=== PATIENT | female | born 1985 | race Caucasian/White ===

== ENCOUNTER 2019-04-30 10:12 | Emergency (ER) | payer SELFPAY ==
--- OUTSIDE RECORDS SUMMARY | 2019-04-30 10:13 | XMS REPORT | Continuity of Care Document ---
:1985 Author Organization [facility] Address [address] [place] [address] Phone Unavailable Care Team Providers Name Role Phone PHYSICIAN, NO Primary Care Physician Unavailable Insurance Providers Guarantor Vicky Ortiz Address [address] [place] [address] Email NONE Payer Self Pay Insurance Subscriber's Name Vicky Ortiz Relationship Self / Same As Patient Group Number NA Group Name NA Advance Directives Directive Response Recorded Date/Time Advance Directives No 10/02/15 8:28am Advance Directive on File No 07/20/18 12:57pm Directive to Physicians/Living Will No 10/02/15 8:28am Health Care Proxy No 10/02/15 8:28am Organ Donor No 10/02/15 8:28am Medical Power of Dot Net Architect No 10/02/15 8:28am Patient/Family Given Education Material R/T Y - 07/20/18....SBM 07/20/18 12 :57pm Directives? Chief Complaint and Reason for Visit Chief Complaint General Complaint Reason for Visit Palpitations Anxiety Problems Medical Problem Onset Date Status Suprapubic pain Unknown Acute UTI (urinary tract infection) Unknown Acute Vaginitis Unknown Acute Past Problems Medical Problem Onset Date Status Anxiety Unknown Acute Palpitations Unknown Acute Medications Current Home Medications Medication Dose Units Route Directions Days Qty Instructions Start Date Emtricitabine/Ten 1 Tab ORAL Daily 30 Tablet ofovir * (Truvada 200/300 Mg *) Tab Lopinavir/Ritonav 2 Tab ORAL Twice A Day ir * (Kaletra 100/25 Mg *) 1 Tab Tab Social History Social History Problem Response Recorded Date/Time Onset Date Status Hx Physical Abuse No 07/20/2018 12:57pm Not Applicable Not Applicable Smoking Status Start Date Stop Date Current every day smoker Hospital Discharge Instructions No hospital discharge instruction information available. Plan of Care Discharge Date 07/20/18 3:27pm Instructions/Education Provided Palpitations Living With Anxiety Forms Provided Prescription Opioid Use Portal Welcome Letter Prescriptions See Medication Section Referrals NO PHYSICIAN Additional Instructions/Education FOLLOW UP WITH A PRIMARY CARE PROVIDER IN 2- 3 DAYS RETURN TO THE ER IF YOUR SYMPTOMS WORSEN Functional Status No functional status information available. Allergies, Adverse Reactions, Alerts Allergen Type Severity Reaction Status Last Updated No Known Allergies Allergy Severe Active 03/19/04 Immunizations No immunization information available. Vital Signs Acute Vital Signs Vital Response Date/Time Blood Pressure 103/66 mm Hg 07/20/2018 3:31pm Pulse Pulse Rate (adult) 77 beats per minute (60 - 100) 07/20/2018 3:31pm Respiratory Rate 20 breaths per minute (10 - 24) 07/20/2018 3:31pm Temperature Source Oral 07/20/2018 3:31pm Height 5 ft 6 in 07/20/2018 12:57pm Weight 120 lb 07/20/2018 12:57pm Body Mass Index 19.4 kg/m^2 07/20/2018 12:57pm Results Laboratory Results Test Name Result Units Flags Reference Collection Result Comments Date/Time Date/Time White Blood Count 6.2 K/ul 4.0-11.5 07/20/2018 07/20/2018 2:08pm 2:15pm Red Blood Count 4.36 M/ul 3.80-5.20 07/20/2018 07/20/2018 2:08pm 2:15pm Hemoglobin 13.3 g/dl 10.5-15.7 07/20/2018 07/20/2018 2:08pm 2:15pm Hematocrit 40.6 % 34.0-50.0 07/20/2018 07/20/2018 2:08pm 2:15pm Mean Corpuscular 93.1 fl 78-98 07/20/2018 07/20/2018 Volume 2:08pm 2:15pm Mean Corpuscular 30.5 pg 26.2-33.4 07/20/2018 07/20/2018 Hemoglobin 2:08pm 2:15pm Mean Corpuscular 32.7 g/dl 31.5-36.2 07/20/2018 07/20/2018 Hemoglobin Concent 2:08pm 2:15pm Red Cell 11.3 % L 11.5-15.5 07/20/2018 07/20/2018 Distribution Width 2:08pm 2:15pm Platelet Count 192 K/ul 137-338 07/20/2018 07/20/2018 2:08pm 2:15pm Mean Platelet 7.6 fl L 8.4-11.8 07/20/2018 07/20/2018 Volume 2:08pm 2:15pm Neutrophils (%) 78.7 % 44.4-80.1 07/20/2018 07/20/2018 (Auto) 2:08pm 2:15pm Lymphocytes (%) 13.1 % 10.0-50.0 07/20/2018 07/20/2018 (Auto) 2:08pm 2:15pm Monocytes (%) 6.4 % 3.6-12.04 07/20/2018 07/20/2018 (Auto) 2:08pm 2:15pm Eosinophils (%) 0.3 % 0.0-5.41 07/20/2018 07/20/2018 (Auto) 2:08pm 2:15pm Basophils (%) 1.4 % H 0.0-0.79 07/20/2018 07/20/2018 (Auto) 2:08pm 2:15pm Prothrombin Time 10.9 SECONDS 10.3-12.3 07/20/2018 07/20/2018 2:08pm 2:33pm THERAPEUTIC LEVEL: 1.5 to 1.9 times normal range of PT Prothromb Time 0.99 07/20/2018 07/20/2018 International 2:08pm 2:33pm Recommended therapeutic range for patients receiving Ratio warfarin (coumadin) therapy: INR is 2.0 to 3.0 Recommended range for patients with mechanical prosthetic heart valves: INR is 2.5 to 3.5 Activated Partial 28.1 SECONDS 22.5-37.0 07/20/2018 07/20/2018 Thromboplast Time 2:08pm 2:33pm Random Glucose 98 mg/dL 74-106 07/20/2018 07/20/2018 2:08pm 2:34pm Blood Urea 10 mg/dL 6-20 07/20/2018 07/20/2018 Nitrogen 2:08pm 2:34pm Serum Osmolality 273 L 280-300 07/20/2018 07/20/2018 2:08pm 2:34pm Creatinine 0.6 mg/dL 0.50-0.90 07/20/2018 07/20/2018 2:08pm 2:34pm Glomerular > 60.00 07/20/2018 07/20/2018 GFR RESULTS ARE REPORTED IN mL/min/1.73m2. Filtration Rate 2:08pm 2:34pm Calc Normal GFR: >60mL/min Moderately decreased GFR: 30-59 mL/min Severely decreased GFR: 15-29 mL/min Kidney Failure (or Dialysis): <15 mL/min The calculated eGFR is not valid for patients younger than 18 years or older than 75 years. BUN/Creatinine 16.7 -07/20/2018 07/20/2018 Ratio 2:08pm 2:34pm Sodium Level 137 mmol/L 135-145 07/20/2018 07/20/2018 2:08pm 2:34pm Potassium Level 4.3 mmol/L 3.5-5.2 07/20/2018 07/20/2018 2:08pm 2:34pm Chloride Level 101 mmol/L 98-108 07/20/2018 07/20/2018 2:08pm 2:34pm Carbon Dioxide 22 mmol/L 21-32 07/20/2018 07/20/2018 Level 2:08pm 2:34pm Anion Gap 18.3 mEq/L 03-1607/20/2018 07/20/2018 2:08pm 2:34pm Calcium Level 9.2 mg/dL 8.6-10.0 07/20/2018 07/20/2018 2:08pm 2:34pm Total Protein 7.7 g/dL 6.6-8.7 07/20/2018 07/20/2018 2:08pm 2:34pm Albumin 4.8 g/dL 3.5-5.2 07/20/2018 07/20/2018 2:08pm 2:34pm Globulin 2.9 gm/dL 07/20/2018 07/20/2018 2:08pm 2:34pm Albumin/Globulin 1.7 >1.0 07/20/2018 07/20/2018 Ratio 2:08pm 2:34pm Total Bilirubin 0.8 mg/dL 0.0-1.2 07/20/2018 07/20/2018 2:08pm 2:34pm Aspartate Amino 15 U/L 15-32 07/20/2018 07/20/2018 Transf (AST/SGOT) 2:08pm 2:34pm Alanine 8 U/L 0-33 07/20/2018 07/20/2018 Aminotransferase 2:08pm 2:34pm (ALT/SGPT) Total Alkaline 58 U/L 35-105 07/20/2018 07/20/2018 Phosphatase 2:08pm 2:34pm Creatine Kinase 64 U/L 20-180 07/20/2018 07/20/2018 2:08pm 2:34pm Troponin I < 0.30 ng/mL 0.0-0.5 07/20/2018 07/20/2018 Published clinical studies have shown elevations of cTnI in 2:08pm 2:35pm patients with myocardial injury, as seen in unstable angina pectoris, cardiac contusions, and heart transplants. Elevations have also been seen in patients with rhabdomyolysis and polymyositis. Elevated troponin levels point to myocardial injury, but are not necessarily indicative of an ischemic mechanism. The term TN should be used when there is evidence of cardiac damage, as detected by marker proteins in a clinical setting consistent with myocardial ischemia. If the clinical circumstance suggests that an ischemic mechanism is unlikely, other causes of cardiac injury should be considered. For diagnostic purposes, the results should always be assessed in conjunction with the patient's medical history, clinical examination and other findings. Creatine Kinase MB < 1.0 ng/ml 0.0-3.6 07/20/2018 07/20/2018 2:08pm 2:35pm DIAGNOSTIC CITERIA: CKMB CKMB RELATIVE INDEX SUGGESTIVE OF NON-AMI < or=5 N/A ZARATE ZONE (INCONCLUSIVE) > 5 < or=4 SUGGESTIVE OF AMI >5 > 4 Procedures Procedure Status Date Provider(s) X-ray of chest, single view Completed 07/20/18 EZRA PATTERSON NP Encounters Encounter Location Arrival/Admit Date Discharge/Depart Date Attending Provider Departed Betsy [place]ne 07/20/18 12:49pm 07/20/18 3:27pm MARII VAUGHN MD Emergency Room [facility] Recent Diagnosis
[2019-04-30] MEDS ORDERED: NA CHLORIDE 0.9% 1,000 ML ONE (10:48)
[2019-04-30] MEDS ORDERED: ONDANSETRON 4 MG/2 ML VIAL ONE (10:48)
[2019-04-30 11:15] LABS: Urine Blood NEGATIVE (NEG); Urine Glucose NEGATIVE (NEG); Urine Protein TRACE (NEG)
[2019-04-30 11:17] LABS: Absolute Lymphocytes (CBC) 0.7 K/uL (0.7-4.9); Basophils % 1.2 % (0-1.3); Hematocrit 38.5 % (36.0-45.0); MPV 8.9 fL (7.6-11.3); RBC Red Blood Cell Count 4.38 M/uL (3.86-4.86)
[2019-04-30 11:34] LABS: ALT/SGPT 14 U/L (12-78); AST/SGOT 11 U/L (15-37); Albumin 4.1 g/dL (3.4-5.0); Alkaline Phosphatase 58 U/L (45-117); BUN Blood Urea Nitrogen 8 mg/dL (7-18); Bicarbonate 26 mmol/L (21-32); Bilirubin Direct < 0.1 mg/dL (0-0.2); Bilirubin Total 0.4 mg/dL (0.2-1.0); Glucose Level 93 mg/dL (74-106); Lipase 57 U/L (73-393); Potassium 3.7 mmol/L (3.5-5.1); Protein, Total 7.9 g/dL (6.4-8.2); Sodium Level 141 mmol/L (136-145)
--- NOTE | 2019-04-30 12:28 | RAD REPORT ---
EXAM DESCRIPTION: RAD - Abdomen 1 View (KUB) - 04/30/2019 12:09 pm CLINICAL HISTORY: Abdomen pain. FINDINGS: The bowel gas pattern is unremarkable. No abnormal calcification is displayed
--- NOTE | 2019-04-30 12:29 | ER ---
Nurse's Notes [facility] Name: Vicky Castañeda Age: 33 yrs Sex: Female : 1985 Arrival Date: 04/30/2019 Time: 10:12 Bed 18 Private MD: Diagnosis: Nausea and vomiting;Local infection of the skin and subcutaneous tissue, unspecified-right thigh Presentation: 04/30 10:22 Presenting complaint: Patient states: vomiting since last night, I was drinking. but I ch also have this thing on my leg and im worried that's causing ti. Transition of care: patient was not received from another setting of care. Onset of symptoms was April 29, 2019 at 23:00. Risk Assessment: Do you want to hurt yourself or someone else? Patient reports no desire to harm self or others. Initial Sepsis Screen: Does the patient meet any 2 criteria? No. Patient's initial sepsis screen is negative. Does the patient have a suspected source of infection? No. Patient's initial sepsis screen is negative. Care prior to arrival: None. 10:22 Method Of Arrival: Ambulatory 10:22 Acuity: WHIT 4 ch Triage Assessment: 10:24 General: Appears in no apparent distress. comfortable, Behavior is calm, cooperative, ch appropriate for age. Pain: Denies pain. GI: Reports nausea. 10:36 General: Appears in no apparent distress. comfortable, Behavior is cooperative, bp appropriate for age, anxious. Pain: Denies pain. EENT: No deficits noted. Neuro: No deficits noted. Cardiovascular: No deficits noted. Respiratory: No deficits noted. GI: Reports nausea. : No signs and/or symptoms were reported regarding the genitourinary system. Derm: No deficits noted. Musculoskeletal: No deficits noted. Historical: - Allergies: 10:24 No Known Allergies; ch - Home Meds: 10:24 None [Active]; ch - PMHx: 10:24 None; ch - PSHx: 10:24 R eye; c section; Tubal ligation; ch - Immunization history:: Adult Immunizations up to date, Flu vaccine is not up to date. - Coronavirus screen:: The patient has NOT traveled to [place], [place], or [place] in the past 14 days. The patient has NOT had contact with known/suspected case of Coronavirus?. - Social history:: Smoking status: Patient denies any tobacco usage or history of. Patient uses alcohol, occasionally. - Ebola Screening: : Patient negative for fever greater than or equal to 101.5 degrees Fahrenheit, and additional compatible Ebola Virus Disease symptoms Patient denies exposure to infectious person Patient denies travel to an Ebola-affected area in the 21 days before illness onset No symptoms or risks identified at this time. Screenin:37 Abuse screen: Denies threats or abuse. Denies injuries from another. Nutritional bp screening: No deficits noted. Tuberculosis screening: No symptoms or risk factors identified. Fall Risk None identified. Assessment: 10:37 General: SEE TRIAGE NOTE. GI: Abdomen is non-distended. bp 11:45 Reassessment: PT TO XRAY. PO CHALLENGE SUCCESSFUL. RESULTS PENDING. bp 12:36 Reassessment: PT D/C HOME AMBULATORY WITH FAMILY, DX WITH CUTANEOUS INFECTION. bp Vital Signs: 10:24 BP 122 / 86; Pulse 115; Resp 18; Temp 97.8(O); Pulse Ox 100% on R/A; Weight 53.52 kg; ch Height 5 ft. 6 in. (167.64 cm); Pain 0/10; 12:00 BP 105 / 69; Pulse 99; Resp 16; Pulse Ox 100% ; bp 12:36 BP 107 / 70; Pulse 99; Resp 17; Temp 98; Pulse Ox 100% ; bp 10:24 Body Mass Index 19.05 (53.52 kg, 167.64 cm) ED Course: 10:12 Patient arrived in ED. as 10:20 Chan Garay MD is Attending Physician. kdr 10:23 Bridger Thompson, HERO is Primary Nurse. bp 10:23 Triage completed. ch 10:24 Arm band placed on left wrist. Patient placed in an exam room, on a stretcher. ch 10:25 Jake Perdomo PA is PHCP. cp 10:37 Patient has correct armband on for positive identification. Bed in low position. Call bp light in reach. Side rails up X2. Adult w/ patient. 10:50 Inserted saline lock: 20 gauge in right antecubital area, using aseptic technique. bp Blood collected. 12:18 XRAY KUB Sent. bp 12:37 No provider procedures requiring assistance completed. IV discontinued, intact, bp bleeding controlled, No redness/swelling at site. Pressure dressing applied. Administered Medications: 10:50 Drug: Zofran 4 mg Route: IVP; Site: right antecubital; bp 12:08 Follow up: Response: Nausea is decreased bp 10:50 Drug: NS 0.9% 1000 ml Route: IV; Rate: 1 bolus; Site: right antecubital; bp 12:38 Follow up: IV Status: Completed infusion; IV Intake: 1000ml bp Intake: 12:38 IV: 1000ml; Total: 1000ml. bp Outcome: 12:28 Discharge ordered by MD. cp 12:37 Discharged to home ambulatory, with family. bp 12:37 Condition: stable 12:37 Discharge instructions given to patient, Instructed on discharge instructions, follow up and referral plans. medication usage, Demonstrated understanding of instructions, follow-up care, medications, wound care, Prescriptions given X 3. 12:38 Patient left the ED. bp Addendum: 05/03/2019 10:06 Addendum: Culture Results: Positive urine culture. No further action required. Bacteria i w sensitive to prescribed antibiotic. Signatures: Tomeka Tompkins RN RN Chan Garay MD MD kdr Martinez, Amelia as Alexia Pineda RN RN iw Page, Corey, LAUREN PA cp Bridger Thompson RN RN bp Corrections: (The following items were deleted from the chart) 04/30 10:25 10:22 Acuity: WHIT 3 ch
--- NOTE | 2019-04-30 12:29 | EDPHYS ---
Physician Documentation [facility] Name: Vicky Castañeda Age: 33 yrs Sex: Female : 1985 Arrival Date: 04/30/2019 Time: 10:12 Bed 18 Private MD: ED Physician Chan Garay HPI: 04/30 10:45 This 33 yrs old Female presents to ER via Ambulatory with complaints of cp Vomiting. 10:45 The patient presents to the emergency department with nausea, that is moderate, cp vomiting, that is intermittent. Onset: The symptoms/episode began/occurred this morning. Possible causes: drink alcohol last night. Associated signs and symptoms: Pertinent negatives: abdominal pain, constipation, diarrhea, fever, GI bleeding. Severity of symptoms: in the emergency department the symptoms are unchanged despite home interventions. Patient also reports area of redness to right thigh "for awhile" that has been draining. Historical: - Allergies: 10:24 No Known Allergies; ch - Home Meds: 10:24 None [Active]; ch - PMHx: 10:24 None; ch - PSHx: 10:24 R eye; c section; Tubal ligation; ch - Immunization history:: Adult Immunizations up to date, Flu vaccine is not up to date. - Coronavirus screen:: The patient has NOT traveled to [place], [place], or [place] in the past 14 days. The patient has NOT had contact with known/suspected case of Coronavirus?. - Social history:: Smoking status: Patient denies any tobacco usage or history of. Patient uses alcohol, occasionally. - Ebola Screening: : Patient negative for fever greater than or equal to 101.5 degrees Fahrenheit, and additional compatible Ebola Virus Disease symptoms Patient denies exposure to infectious person Patient denies travel to an Ebola-affected area in the 21 days before illness onset No symptoms or risks identified at this time. ROS: 11:00 Constitutional: Negative for body aches, chills, fever, poor PO intake. cp 11:00 Eyes: Negative for injury, pain, redness, and discharge. cp 11:00 ENT: Negative for drainage from ear(s), ear pain, sore throat, difficulty swallowing, difficulty handling secretions. 11:00 Cardiovascular: Negative for chest pain, palpitations. 11:00 Respiratory: Negative for cough, shortness of breath, wheezing. 11:00 Abdomen/GI: Positive for nausea and vomiting, Negative for abdominal pain, diarrhea, constipation, hematemesis, black/tarry stool, rectal bleeding. 11:00 Back: Negative for radiated pain. 11:00 : Negative for urinary symptoms. 11:00 Skin: Positive for cellulitis, of the right thigh. 11:00 Neuro: Negative for headache. 11:00 All other systems are negative. Exam: 11:05 Constitutional: The patient appears in no acute distress, alert, awake, non-toxic, well cp developed, well nourished. 11:05 Head/Face: Normocephalic, atraumatic. cp 11:05 Eyes: Periorbital structures: appear normal, Conjunctiva: normal, no exudate, no injection, Sclera: no appreciated abnormality, Lids and lashes: appear normal, bilaterally. 11:05 ENT: External ear(s): are unremarkable, Nose: is normal, Mouth: Lips: moist, Oral mucosa: pink and intact, moist, Posterior pharynx: Airway: no evidence of obstruction, patent. 11:05 Neck: ROM/movement: is normal, no nuchal rigidity. 11:05 Chest/axilla: Inspection: normal, Palpation: is normal, no crepitus, no tenderness. 11:05 Cardiovascular: Rate: tachycardic, Rhythm: regular. 11:05 Respiratory: the patient does not display signs of respiratory distress, Respirations: normal, no use of accessory muscles, no retractions, no splinting, no tachypnea, labored breathing, is not present, Breath sounds: are clear throughout, no decreased breath sounds, no stridor, no wheezing. 11:05 Abdomen/GI: Inspection: abdomen appears normal, Bowel sounds: active, all quadrants, Palpation: abdomen is soft and non-tender, in all quadrants. 11:05 Back: pain, is absent, ROM is normal. 11:05 Skin: cellulitis, that is mild, well demarcated, on the right thigh. Vital Signs: 10:24 BP 122 / 86; Pulse 115; Resp 18; Temp 97.8(O); Pulse Ox 100% on R/A; Weight 53.52 kg; ch Height 5 ft. 6 in. (167.64 cm); Pain 0/10; 12:00 BP 105 / 69; Pulse 99; Resp 16; Pulse Ox 100% ; bp 12:36 BP 107 / 70; Pulse 99; Resp 17; Temp 98; Pulse Ox 100% ; bp 10:24 Body Mass Index 19.05 (53.52 kg, 167.64 cm) ch MDM: 10:32 Patient medically screened. cp 11:00 Differential diagnosis: gastritis, cholecystitis, appendicitis, viral gastroenteritis, cp gastroenteritis. 12:27 Data reviewed: vital signs, nurses notes, lab test result(s), radiologic studies, plain cp films. 12:27 Test interpretation: by ED physician or midlevel provider: plain radiologic studies, cp KUB xray negative for obstruction. Counseling: I had a detailed discussion with the patient and/or guardian regarding: the historical points, exam findings, and any diagnostic results supporting the discharge/admit diagnosis, lab results, radiology results, to return to the emergency department if symptoms worsen or persist or if there are any questions or concerns that arise at home. Response to treatment: the patient's symptoms have markedly improved after treatment, VSS. Nausea improved and no vomiting observed by patient while in ED, and as a result, I will discharge patient. 04/30 10:38 Order name: Basic Metabolic Panel cp 04/30 10:38 Order name: CBC with Diff cp 04/30 10:38 Order name: Creatinine for Radiology cp 04/30 10:38 Order name: Hepatic Function cp 04/30 10:38 Order name: Lipase cp 04/30 10:38 Order name: Wound Culture: right thigh cp 04/30 10:38 Order name: Magnesium cp 04/30 11:02 Order name: Urine Dipstick--Ancillary (enter results) bd 04/30 11:02 Order name: Urine --Ancillary (enter results) bd 04/30 11:16 Order name: Urine --Ancillary; Complete Time: 11:21 EDMS 04/30 11:16 Order name: Urine Dipstick-Ancillary; Complete Time: 11:21 EDMS 04/30 11:20 Order name: CBC with Automated Diff; Complete Time: 11:21 EDMS 04/30 11:21 Interpretation: Normal except: WBC 3.9. cp 04/30 11:30 Order name: Creatinine (Radiology Only); Complete Time: 11:36 EDMS 04/30 11:34 Order name: Basic Metabolic Panel; Complete Time: 11:36 EDMS 04/30 11:36 Interpretation: Normal except: CL 109. cp 04/30 10:38 Order name: IV Saline Lock; Complete Time: 11:06 04/30 10:38 Order name: Labs collected and sent; Complete Time: 11:06 04/30 10:38 Order name: Urine Dipstick-Ancillary (obtain specimen); Complete Time: 11:06 04/30 10:38 Order name: Urine Test (obtain specimen); Complete Time: 11: 04/30 11:34 Order name: Liver (Hepatic) Function; Complete Time: 11:36 EDMS 04/30 11:36 Interpretation: Normal except: AST 11; GLOB 3.8. cp 04/30 11:34 Order name: Magnesium; Complete Time: 11:36 EDMS 04/30 11:34 Order name: Lipase; Complete Time: 11:36 EDNY 04/30 11:42 Order name: PO challenge; Complete Time: 12:08 04/30 11:42 Order name: XRAY KUB 04/30 12:32 Order name: RAD EDNY Administered Medications: 10:50 Drug: Zofran 4 mg Route: IVP; Site: right antecubital; bp 12:08 Follow up: Response: Nausea is decreased bp 10:50 Drug: NS 0.9% 1000 ml Route: IV; Rate: 1 bolus; Site: right antecubital; bp 12:38 Follow up: IV Status: Completed infusion; IV Intake: 1000ml bp Disposition: 18:35 Co-signature as Attending Physician, Chan Garay MD I agree with the assessment and kdr plan of care. Disposition: 04/30/19 12:28 Discharged to Home. Impression: Nausea and vomiting, Local infection of the skin and subcutaneous tissue, unspecified - right thigh. - Condition is Stable. - Discharge Instructions: Cellulitis, Adult, Dehydration, Adult, Nausea and Vomiting, Adult. - Prescriptions for Bactroban 2 % Topical Ointment - Apply to affected area 1 application by TOPICAL route every 12 hours; 30 gram. Zofran 4 mg Oral Tablet - take 1 tablet by ORAL route every 12 hours As needed; 20 tablet. Bactrim DS 800- 160 mg Oral Tablet - take 1 tablet by ORAL route every 12 hours for 10 days; 20 tablet. - Medication Reconciliation Form, Thank You Letter, Antibiotic Education, Prescription Opioid Use form. - Follow up: Private Physician; When: 1 - 2 days; Reason: Worsening of condition. - Problem is new. - Symptoms have improved. Signatures: Dispatcher [employer] EDTomeka Davis, RN RN Chan Lugo MD MD [facility] Jake Perdomo PA PA cp Bridger Thompson, RN RN bp Corrections: (The following items were deleted from the chart) 12:38 12:28 04/30/2019 12:28 Discharged to Home. Impression: Nausea and vomiting; Local bp infection of the skin and subcutaneous tissue, unspecified - right thigh. Condition is Stable. Forms are Medication Reconciliation Form, Thank You Letter, Antibiotic Education, Prescription Opioid Use. Follow up: Private Physician; When: 1 - 2 days; Reason: Worsening of condition. Problem is new. Symptoms have improved. cp
[2019-04-30 13:03] VITALS: O2SAT 100
[2019-04-30 13:06] VITALS: BP 107/70; TEMP 98
== END 2019-04-30 12:38 | disposition home or self-care (01) ==
LOC: ER 10:12
DX: L08.9 Local infection of the skin and subcutaneous tissue, unspecified (principal)
CPT/HCPCS: 36415; 74018; 80048; 80076; 81003; 81025; 83690; 83735; 85025; 87070; 87077; 87186; 87205; 96361; 96374; 99284; J2405; J7030